=== PATIENT | female | born 1970 | race African-American/Black ===

== ENCOUNTER 2017-07-11 17:21 | Observation (INO) ==
[2017-07-11 18:12] LABS: Basophils # 0.1 10*3/uL (0.0-0.2); Basophils % 0.5 % (0.0-0.8); Eosinophils # 0.2 10*3/uL (0.0-0.87); Eosinophils % 1.9 % (0.00-10.9); Hematocrit 39.6 VOL% (35.7-47.0); Hemoglobin 12.8 GM/DL (12.0-16.0); Immature Granulocytes % 0.3 %; Immature Granulocytes Absolute 0.03 #; Lymphocytes # 3.3 10*3/uL (1.4-4.0); Lymphocytes % 33.2 % (21.3-54.2); Mean Corpuscular HGB Conc 32.3 GM/DL (32-36); Mean Corpuscular Hemoglobin 28 PG (27-34); Mean Corpuscular Volume 86.7 FL (87-102); Mean Platelet Volume 12.1 FL (9.6-12.0); Monocytes # 0.5 10*3/uL (0.11-0.8); Monocytes % 4.7 % (1.7-12.7); Neutrophils # 5.9 10*3/uL (1.4-7.4); Neutrophils % 59.4 % (38.7-73.9); Platelet Count 240 T/CUMM (130-400); Red Blood Count 4.57 MC/CUMM (3.8-5.5); Red Cell Distribution Width 14.2 % (9.3-17.3)
[2017-07-11 18:20] LABS: PT Patient Result 10.3 SECS
[2017-07-11 18:34] LABS: Alanine Aminotransferase 38 U/L (13-56); Albumin 4.2 G/DL (3.4-5.0); Alkaline Phosphatase 76 U/L (45-117); Aspartate Amino Transferase 17 U/L (0-37); Bilirubin,Total < 0.39 MG/DL (0.2-1.0); Blood Urea Nitrogen 11 MG/DL (7-18); Calcium 9.3 MG/DL (8.5-10.1); Glucose 115 MG/DL (74-106); Magnesium 2.1 MG/DL (1.8-2.4); Osmolality,Calculated 274.7 MOS/KG (273-304); Sodium 138 MMOL/L (136-145); Total Protein 7.6 G/DL (6.4-8.3)
[2017-07-11] MEDS ORDERED: ASPIRIN 325 MG TABLET PO STA (20:59)
[2017-07-11] MEDS ORDERED: NITROGLYCERIN 2% OINT 1 INCH/GM PACK TOP STA (20:59)
[2017-07-11] MEDS ORDERED: KETOROLAC 30 MG/1 ML VIAL IV STA (20:59)
[2017-07-11] MEDS ORDERED: PANTOPRAZOLE 40 MG VIAL IV STA (21:00)
[2017-07-11] MEDS ORDERED: NITROGLYCERIN 2% OINT 1 INCH/GM PACK TOP ONE (21:26)
[2017-07-11] MEDS ORDERED: KETOROLAC 30 MG/1 ML VIAL ONE (21:26)
[2017-07-11] MEDS ORDERED: ASPIRIN 325 MG TABLET ONE (21:27)
[2017-07-11] MEDS ORDERED: PANTOPRAZOLE 40 MG VIAL IV ONE (21:27)
[2017-07-11] MEDS ORDERED: GLUCAGON 1 MG VIAL IM PRN (22:42)
[2017-07-11] MEDS ORDERED: ONDANSETRON 4 MG/2 ML VIAL IV PRN (22:42)
[2017-07-11] MEDS ORDERED: MORPHINE 2 MG/1 ML SYRINGE IV PRN (22:42)
[2017-07-11] MEDS ORDERED: ACETAMINOPHEN 325 MG TABLET PO PRN (22:42)
[2017-07-11] MEDS ORDERED: DEXTROSE 50% 25 GM/50 ML VIAL IV PRN (22:42)
[2017-07-11] MEDS ORDERED: NITROGLYCERIN SL 0.4 MG TABLET SL STA (22:48)
[2017-07-11] MEDS ORDERED: hydrALAZINE 20 MG/1 ML VIAL IV PRN (22:49)
[2017-07-11] MEDS ORDERED: NITROGLYCERIN SL 0.4 MG TABLET SL PRN (23:04)
[2017-07-12] MEDS ORDERED: INFLUENZA VIRUS VACCINE 0.5 ML SYRINGE IM ONE (06:00)
[2017-07-12 06:17] LABS: Risk Ratio 3.63
[2017-07-12] MEDS ORDERED: ENOXAPARIN 40 MG/0.4 ML SYRINGE SUBCUT SCH (09:00)
[2017-07-12] MEDS ORDERED: ISOSORBIDE DINITRATE 20 MG TABLET PO SCH (09:00)
[2017-07-12] MEDS ORDERED: CANAGLIFLOZIN PO SCH (09:00)
[2017-07-12] MEDS ORDERED: hydrALAZINE 25 MG TABLET PO SCH (09:00)
[2017-07-12] MEDS ORDERED: METFORMIN HCL PO SCH (09:00)
[2017-07-12] MEDS ORDERED: PANTOPRAZOLE 40 MG TABLET PO SCH (09:00)
[2017-07-12] MEDS ORDERED: ASPIRIN EC 81 MG TABLET PO SCH (09:00)
[2017-07-12] MEDS: INSULIN LISPRO 100 UNIT/ML SUBCUT SCH ×2 (09:21→13:00)
[2017-07-12] MEDS ORDERED: KETOROLAC 30 MG/1 ML VIAL IV SCH (11:00)
[2017-07-12 12:52] VITALS: BP 165/97
[2017-07-12] MEDS: LISINOPRIL 20 MG TABLET PO SCH ×2 (12:59→16:03)
== END 2017-07-12 15:45 | disposition home or self-care (01) ==
LOC: N.ED 17:21 → INTOOBSV 22:39 → N.EDINP 22:39 → N.TELEN 23:10
PROVIDERS: ADMIT Internal Medicine; ATTEND Internal Medicine